=== PATIENT | female | born 1940 | race Caucasian/White ===

== ENCOUNTER 2024-07-27 11:32 | Emergency (ER) | payer MEDICARE, MEDICAID, SELFPAY ==
[2024-07-27 11:46] VITALS: BP 153/65; PULSE 74; RESP 26; TEMP 36.3; O2SAT 98
[2024-07-27 11:59] VITALS: BP 153/65; PULSE 74; RESP 26; TEMP 36.3; O2SAT 98
--- NOTE | 2024-07-27 12:14 | ED.GENADULT ---
HPI - General Adult General Chief complaint: Wound/Laceration Stated complaint: Skin Sore Time Seen by Provider: 07/27/24 11:59 Source: patient, family, RN notes reviewed and old records reviewed Mode of arrival: ambulatory Limitations: no limitations History of Present Illness HPI narrative: 84 year old female accompanied by daughter with complaints of some initial white pimple type of lesions on her left lower leg and 2 areas to the medial anterior aspect of her right foot which started 2 days ago. Patient admits to scratching areas with areas now having fluid filled blisters. Patient denies any new body lotions, bath soaps, foods,medication, laundry products or any exposure to poisonous plants. Patient reports no fevers, chills or sweats, denies any acute pain to areas at this time just itchy.. Patient is followed by pain management for chronic back pain. MD complaint: fluid filled blisters right foot and left lower leg Onset (ago): day(s) (2) Location: lower extremity (left lower leg and dorsal medial right foot) Severity: moderate Treatments prior to arrival: none Related Data Home Medications Medication Instructions Recorded Confirmed buspirone 5 mg tablet mg 07/27/24 escitalopram oxalate 10 mg tablet mg 07/27/24 fentanyl 12 mcg/hr transdermal 07/27/24 patch omeprazole 40 mg capsule,delayed mg 07/27/24 release oxycodone-acetaminophen 10 mg-325 tablet 07/27/24 mg tablet potassium chloride 10 mEq meq PO 07/27/24 tablet,extended release pravastatin 40 mg tablet mg 07/27/24 pregabalin 75 mg capsule mg 07/27/24 primidone 50 mg tablet mg 07/27/24 primidone 50 mg tablet mg 07/27/24 roflumilast 500 mcg tablet mcg 07/27/24 Allergies Allergy/AdvReac Type Severity Reaction Status Date / Time No Known Allergies Allergy Verified 07/27/24 11:37 Review of Systems Review of Systems: CONSTITUTIONAL: Denies fever, chills, or sweats. CARDIOVASCULAR: Denies chest pain, palpitations, or edema. RESPIRATORY: Denies acute cough or dyspnea. GASTROINTESTINAL: Denies abdominal pain, nausea, vomiting SKIN: Reports redness with lesions. Denies purulent drainage,positive for fluid filled blister type of lesions 2 to right medial dorsal foot, and 2 to left lower leg no pain just pruritic, states initially white pimple type lesions. MUSCULOSKELETAL: Chronic back pain sees pain management, spinal stenoisis t NEUROLOGIC: Denies headache, numbness All systems reviewed & are unremarkable except as noted in HPI and below PMFSH Past Medical History Medical History (Updated 07/28/24 @ 11:36 by Amarilys Montes NP) Arthritis Cardiac arrhythmia Chronic back pain Congestive heart failure COPD (chronic obstructive pulmonary disease) Spinal stenosis Social History Social History (Updated 07/28/24 @ 11:34 by Amarilys Montes NP) Smoking status: Former smoker Alcohol intake: unknown Substance use: current Substance use type: opiates Last use: on pain management for chronic back pain Living arrangements: with family Gender identity (if verbalized by the patient): Female Comments At time of signature, agree with nursing past medical, surgical, social and family history. There is no relevant family history pertinent to the presenting complaint Exam Narrative: GENERAL: chronic illl-appearing, well-nourished, and in no acute distress. HEAD: Normocephalic, atraumatic. EYES: PERRLA and EOMI. ENT: Nares clear, no rhinorrhea or epistaxis. Mucous membranes moist. NECK: Supple. no lymphadenopathy CHEST: Clear to auscultation. No respiratory distress.no acute cough SAO2 98% on room air HEART: Regular rate and rhythm. No murmur heard. Normal peripheral pulses. ABDOMEN: Soft, nontender, nondistended, normal active bowel sounds. EXTREMITIES: Normal range of motion. No edema. SKIN: Warm, dry. Erythema,with fluid filled blisters with no drainage noted X2 to dorsal medial foot, and to left lower leg with no pain to areas states some itching of areas, reports initially white pimple type of lesions. NEURO: No focal deficits. Alert and oriented x3. Course Course Emergency Course: Patient is aware of diagnosis, understands and agrees to treatment plan. Anticipatory guidance given. Patient agrees to follow-up as directed and is aware of reasons to seek care at the emergency department. Portions of this record may have been created with voice recognition software Level of Care: Express Care Visit Vital Signs Vital signs: Vital Signs Temperature 36.3 C L 07/27/24 11:46 Pulse Rate 74 07/27/24 11:46 Respiratory Rate 26 H 07/27/24 11:46 Blood Pressure 153/65 H 07/27/24 11:46 Pulse Oximetry 98 07/27/24 11:46 Oxygen Delivery Room Air 07/27/24 11:46 Temperature 36.3 C L 07/27/24 11:59 Pulse Rate 74 07/27/24 11:59 Respiratory Rate 26 H 07/27/24 11:59 Blood Pressure 153/65 H 07/27/24 11:59 Pulse Oximetry 98 07/27/24 11:59 Oxygen Delivery Room Air 07/27/24 11:59 Reviewed Medical Decision Making Differential Diagnosis Differential Diagnosis: blisters to right foot and left lower leg, cellulitis, contact dermatitis, Medical Records Medical records reviewed: Yes I reviewed the external patient's medical records. Vital Signs Vital Signs: Vital Signs Temperature 36.3 C L 07/27/24 11:46 Pulse Rate 74 07/27/24 11:46 Respiratory Rate 26 H 07/27/24 11:46 Blood Pressure 153/65 H 07/27/24 11:46 Pulse Oximetry 98 07/27/24 11:46 Oxygen Delivery Room Air 07/27/24 11:46 Temperature 36.3 C L 07/27/24 11:59 Pulse Rate 74 07/27/24 11:59 Respiratory Rate 26 H 07/27/24 11:59 Blood Pressure 153/65 H 07/27/24 11:59 Pulse Oximetry 98 07/27/24 11:59 Oxygen Delivery Room Air 07/27/24 11:59 Critical Care Time Critical Care Time Critical Care Time: No Discharge Plan Discharge Clinical Impression: Leg skin lesion, left, Skin lesion of foot Patient Disposition: Home, Self-Care Condition: Stable Instructions: Antibiotic Form, Blister (ED) Additional Instructions: Cleanse wound areas with some with liquid Dial soap twice daily in rinse apply Bactroban watch for increasing infection--redness, swelling, drainage Tylenol or ibuprofen for any pain or fever follow up with PCP in 5-7 days for a wound check recheck if develop fever, chills, increasing symptom Go to the ER if your symptoms become worse of if ANY new symptoms develop Antibiotics as prescribed complete all doses If your symptoms persist, change or worsen significantly before you can contact your personal physician then please, without delay, go to the emergency department for further evaluation. Follow-up with PCP in 7-10 days or sooner if needed Follow up with PCP soon in regards to your blood pressure which is elevated above threshold for referral. Blood pressure above 120/80 may indicate pre-hypertension. 153/65 Prescriptions: New mupirocin 2 % ointment 1 applic topical BID Qty: 22 0RF Rx Instructions: To wounds cephalexin 500 mg capsule 500 mg PO Q12H Qty: 14 0RF No Action buspirone 5 mg tablet primidone 50 mg tablet primidone 50 mg tablet pravastatin 40 mg tablet potassium chloride 10 mEq tablet extended release PO omeprazole 40 mg capsule,delayed release(DR/EC) oxycodone-acetaminophen 10-325 mg tablet escitalopram oxalate 10 mg tablet fentanyl 12 mcg/hr patch 72 hour pregabalin 75 mg capsule roflumilast 500 mcg tablet Follow-up/Referrals: Kalli,JORDON Frost [Primary Care Provider] - Time of Disposition: 12:21 Quality [place] Coma Scale Eyes: Open Verbal: Oriented and Alert Motor: Follows Commands [place] Coma Total Score: 15
== END 2024-07-27 12:25 | disposition home or self-care (01) ==
PROVIDERS: Emergency Provider Registered Nurse; PCP Physician Assistant
DX: L98.9 Disorder of the skin and subcutaneous tissue, unspecified (principal); I50.9 Heart failure, unspecified; J44.9 Chronic obstructive pulmonary disease, unspecified; M48.00 Spinal stenosis, site unspecified; M19.90 Unspecified osteoarthritis, unspecified site; Z87.891 Personal history of nicotine dependence
CPT/HCPCS: 99203; G0463